=== PATIENT | female | born 1960 | race Two or more races ===

== ENCOUNTER → 2017-06-06 11:40 | Outpatient (CLI) | payer SELFPAY | END | disposition home or self-care (01) | LOC: D.RAD 11:40 → D.LAB 11:40 | DX: R05 Cough (principal) ==

== ENCOUNTER → 2020-11-03 18:35 | Outpatient (CLI) | payer SELFPAY ==
[2020-11-03 19:22] LABS: ALBUMIN 3.9 g/dL (3.4-5.0); ALKALINE PHOSPHATASE 78 U/L (30-120); ALT (SGPT) 32 U/L (10-68); BILIRUBIN - TOTAL 0.16 mg/dL (0.2-1.3); CALC OSMOLALITY 283 mosm/kg (275-300); CALCIUM 8.8 mg/dL (8.5-10.1); CARBON DIOXIDE 27.9 mmol/L (21.0-32.0); CHLORIDE - SERUM 105 mmol/L (98-107); CHOL - HDL RATIO 3.1 ratio (2.3-4.1); CHOLESTEROL, TOTAL 187 mg/dL (0-200); CREATININE - SERUM 0.7 mg/dL (0.6-1.3); GLUCOSE 95 mg/dL (74-106); HDL CHOLESTEROL 61 mg/dL (32-96); LDL CHOLESTEROL 96 mg/dL (0-100); LDL-HDL RATIO 1.6 ratio (1.5-3.5); POTASSIUM - SERUM 4.1 mmol/L (3.5-5.1); PROTEIN - SERUM 7.3 g/dL (6.4-8.2); SODIUM 141 mmol/L (136-145); TRIGLYCERIDE 153 mg/dL (30-200); UREA NITROGEN 20 mg/dL (7-18); eGFR NON AFRICAN AMERICAN > 90 mL/min (90-120)
== END | disposition home or self-care (01) ==
LOC: D.LABREF 18:35
PROVIDERS: ATTEND Legal Medicine
DX: I10 Essential (primary) hypertension (principal); E78.2 Mixed hyperlipidemia